=== PATIENT | female | born 1980 | race African-American/Black ===

== ENCOUNTER 2017-03-14 12:13 | Inpatient (IN) | payer SELFPAY ==
[~2017-03-14] VITALS: Ht 162.6 cm; Wt 79.4 kg
--- NOTE | 2017-03-14 12:20 | PHYS DOC ---
Adult General Chief Complaint Chief Complaint: ABDOMINAL PAIN HPI HPI Patient is a 36 year old -Martiniqu[place] female who presents with lower quadrant pain. She states his been going on for last week on and off intermittently. She states today she developed what right lower quadrant pain that is not constant and she vomited once. She denies any vaginal bleeding or discharge. She denies any past surgical history on her abdomen. She has had ablation of her cervix and hasn't had a period for the last several months. Review of Systems Review of Systems Constitutional: Denies fever or chills [] Eyes: Denies change in visual acuity, redness, or eye pain [] HENT: Denies nasal congestion or sore throat [] Respiratory: Denies cough or shortness of breath [] Cardiovascular: No additional information not addressed in HPI [] GI: Positive for abdominal pain, nausea, vomiting, denies any bloody stools or diarrhea [] : Denies dysuria or hematuria [] Musculoskeletal: Denies back pain or joint pain [] Integument: Denies rash or skin lesions [] Neurologic: Denies headache, focal weakness or sensory changes [] Endocrine: Denies polyuria or polydipsia [] Current Medications Current Medications Current Medications Medications (Trade) Dose Ordered Sig/Cassie Start Time Stop Time Status Last Admin Dose Admin Info (Do NOT chart on this entry -- for MONITORING) 1 each PRN DAILY PRN 03/14/17 13:30 03/16/17 13:29 Iohexol (Omnipaque 240 Mg/ml) 50 ml 1X ONCE 03/14/17 13:30 03/14/17 13:31 DC 03/14/17 14:10 50 ML Iohexol (Omnipaque 300 Mg/ml) 75 ml 1X ONCE 03/14/17 13:30 03/14/17 13:31 DC 03/14/17 14:10 75 ML Morphine Sulfate 2 mg PRN Q15MIN PRN 03/14/17 12:45 03/15/17 12:44 03/14/17 14:03 2 MG Ondansetron HCl (Zofran) 4 mg 1X ONCE 03/14/17 12:45 03/14/17 12:46 DC 03/14/17 12:59 4 MG Sodium Chloride 1,000 ml @ 1,000 mls/hr Q1H 03/14/17 12:40 03/14/17 13:39 DC 03/14/17 13:00 1,000 MLS/HR Allergies Allergies Allergies Coded Allergies Type Severity Reaction Last Updated Verified Penicillins Allergy Severe Anaphylaxis 03/14/17 Yes Physical Exam Physical Exam Constitutional: Well developed, well nourished, no acute distress, non-toxic appearance. [] HENT: Normocephalic, atraumatic, bilateral external ears normal, oropharynx moist, no oral exudates, nose normal. [] Eyes: PERRLA, EOMI, conjunctiva normal, no discharge. [] Neck: Normal range of motion, no tenderness, supple, no stridor. [] Cardiovascular:Heart rate regular rhythm, no murmur [] Lungs & Thorax: Bilateral breath sounds clear to auscultation [] Abdomen/pelvic: Bowel sounds normal, soft, mild tender palpation right lower quadrant, no rebound or guarding, no masses, no pulsatile masses. Pelvic exam shows normal external genitalia, mild tenderness on the right adnexal area, no discharge noted, nut culler present Skin: Warm, dry, no erythema, no rash. [] Back: No tenderness, no CVA tenderness. [] Extremities: No tenderness, no cyanosis, no clubbing, ROM intact, no edema. [] Neurologic: Alert and oriented X 3, normal motor function, normal sensory function, no focal deficits noted. [] Psychologic: Affect normal, judgement normal, mood normal. [] Current Patient Data Vital Signs Vital Signs Date Time Temp Pulse Resp B/P (MAP) Pulse Ox O2 Delivery O2 Flow Rate FiO2 03/14/17 14:46 84 20 117/72 (87) 95 Room Air 03/14/17 12:30 98.3 98.3 Lab Values Laboratory Tests Test 03/14/17 12:30 03/14/17 12:37 03/14/17 12:50 Urine Collection Type Unknown Urine Color Yellow Urine Clarity Clear Urine pH 7.5 Urine Specific Gruver >=1.030 Urine Protein Negative mg/dL (NEG-TRACE) Urine Glucose (UA) Negative mg/dL (NEG) Urine Ketones (Stick) Negative mg/dL (NEG) Urine Blood Negative (NEG) Urine Nitrite Negative (NEG) Urine Bilirubin Negative (NEG) Urine Urobilinogen Dipstick 1.0 mg/dL (0.2 mg/dL) Urine Leukocyte Esterase Small (NEG) Urine RBC 0 /HPF (0-2) Urine WBC 1-4 /HPF (0-4) Urine Squamous Epithelial Cells Many /LPF Urine Bacteria Moderate /HPF (0-FEW) Urine Mucus Marked /LPF POC Urine HCG, Qualitative Hcg negative (Negative) White Blood Count 10.1 x10^3/uL (4.0-11.0) Red Blood Count 4.52 x10^6/uL (3.50-5.40) Hemoglobin 12.4 g/dL (12.0-15.5) Hematocrit 37.7 % (36.0-47.0) Mean Corpuscular Volume 84 fL (79-100) Mean Corpuscular Hemoglobin 28 pg (25-35) Mean Corpuscular Hemoglobin Concent 33 g/dL (31-37) Red Cell Distribution Width 13.3 % (11.5-14.5) Platelet Count 240 x10^3/uL (140-400) Neutrophils (%) (Auto) 72 % (31-73) Lymphocytes (%) (Auto) 20 % (24-48) L Monocytes (%) (Auto) 7 % (0-9) Eosinophils (%) (Auto) 0 % (0-3) Basophils (%) (Auto) 0 % (0-3) Neutrophils # (Auto) 7.2 x10^3uL (1.8-7.7) Lymphocytes # (Auto) 2.0 x10^3/uL (1.0-4.8) Monocytes # (Auto) 0.7 x10^3/uL (0.0-1.1) Eosinophils # (Auto) 0.0 x10^3/uL (0.0-0.7) Basophils # (Auto) 0.0 x10^3/uL (0.0-0.2) Prothrombin Time 13.1 SEC (11.7-14.0) Prothrombin Time INR 1.1 (0.8-1.1) PTT 32 SEC (24-38) Sodium Level 143 mmol/L (136-145) Potassium Level 3.7 mmol/L (3.5-5.1) Chloride Level 105 mmol/L (98-107) Carbon Dioxide Level 31 mmol/L (21-32) Anion Gap 7 (6-14) Blood Urea Nitrogen 11 mg/dL (7-20) Creatinine 0.8 mg/dL (0.6-1.0) Estimated GFR (Cockcroft-Gault) 99.4 Glucose Level 89 mg/dL (70-99) Calcium Level 9.3 mg/dL (8.5-10.1) Total Bilirubin 0.8 mg/dL (0.2-1.0) Direct Bilirubin 0.1 mg/dL (0.0-0.2) Aspartate Amino Transferase (AST) 26 U/L (15-37) Alanine Aminotransferase (ALT) 26 U/L (14-59) Alkaline Phosphatase 77 U/L (46-116) Creatine Kinase 488 U/L (26-192) H Creatine Kinase MB (Mass) 1.1 ng/mL (0.0-3.6) Creatine Kinase MB Relative Index 0.2 % (0-4) Total Protein 7.5 g/dL (6.4-8.2) Albumin 3.8 g/dL (3.4-5.0) Lipase 145 U/L (73-393) Laboratory Tests 03/14/17 12:50 Laboratory Tests 03/14/17 12:50 Microbiology 03/14/17 Wet Prep - Final, Complete Microbiology 03/14/17 Wet Prep - Final, Complete EKG EKG [] Radiology/Procedures Radiology/Procedures [facility] [address], [place] [id number] IMAGING REPORT Signed PATIENT: WILMA JAMES ACCOUNT: [id number] : 1980 LOCATION: ER AGE: 36 SEX: F EXAM STATUS: REG ER ORD. PHYSICIAN: JAMES WHITE MD REASON: rlq pain PROCEDURE: CT ABD PELV W/ORAL&IV CONTRAST CT of the abdomen and pelvis with contrast, 2016: History: Right lower quadrant pain Multidetector CT imaging was performed following oral and IV administration of contrast. No hepatic abnormality is seen. The gallbladder is unremarkable. No pancreatic abnormality is detected. The spleen is of normal size. The kidneys show no evidence of obstruction or mass. The abdominal aorta is unremarkable. No abdominal or pelvic adenopathy is seen. There is a tiny central calcification in the uterus. There is mild diffuse bladder wall thickening. The appearance may be accentuated by lack of bladder distention. The bowel loops are not dilated. The oral contrast has not reached the distal small bowel or cecum. A small portion of the appendix is visualized and it is not enlarged. No pericecal inflammation is seen. No free air is identified in the abdomen. There is a small amount of free fluid in the pelvis. IMPRESSION: 1. Mild diffuse bladder wall thickening raising the possibility of cystitis. Clinical correlation is suggested. 2. Small amount of free fluid in the pelvis. 3. No evidence of acute appendicitis. PQRS Compliance Statement: One or more of the following individualized dose reduction techniques were utilized for this examination: 1. Automated exposure control 2. Adjustment of the mA and/or kV according to patient size 3. Use of iterative reconstruction technique DICTATED and SIGNED BY: DERICK MALONE MD DATE: 03/14/17 142 CC: JAMES WHITE MD; NON,STAFF ~ [facility] [address] [place], [place] [id number] IMAGING REPORT Signed PATIENT: WILMA JAMES ACCOUNT: [id number] : 1980 LOCATION: ER AGE: 36 SEX: F EXAM STATUS: REG ER ORD. PHYSICIAN: JAMES WHITE MD REASON: rlq pain PROCEDURE: PELVIS W/TV Pelvic ultrasound, 03/14/2017: History: Right lower quadrant pain Transabdominal and transvaginal scans were obtained. The uterus measures 8.6 x 6.6 x 5.3 cm. The central uterine echo complex measures 8 mm. There are are small echogenic foci related to the central uterine echo complex compatible with calcifications. A 2.8 cm mildly heterogeneous predominantly hyperechoic mass is seen within the myometrium anteriorly compatible with a uterine fibroid. A 1.7 cm nabothian cyst is present in the cervical region. The ovaries are of normal size. They contain small follicular cysts. No adnexal mass is seen. A small amount of free fluid is present in the pelvis. This amount of fluid can be on a physiologic basis. IMPRESSION: 1. Small uterine fibroid. 2. Nabothian cyst. 3. Minimal endometrial calcifications. 4. Small amount of free fluid in the pelvis. DICTATED and SIGNED BY: DERICK MALONE MD DATE: 03/14/17 141 CC: JAMES WHITE MD; NON,STAFF ~ RUN DATE: 03/14/17 PAGE 1 RUN TIME: 1346 [facility] [address] [place] [address] Tyrell Segundo M.D., Tying Machine Operator PATIENT: WILMA JAMES ACCT: [id number] LOC: DONTE U : [id number] AGE/SX: 36/F ROOM: REG : 03/14/[address]: JAMES WHITE MD : 1980 BED: DIS : STATUS: REG ER TLOC: SPEC #: [id number] ISAC: 03/14/17 STATUS: COMP REQ #: [id number] RECD: 03/14/17 [facility] [address]: JAMES WHITE MD SOURCE: VAGINAL ENTR: 03/14/17-1242 [facility] [address]: SPDESC: ORDERED: WET PREP COMMENTS: Has specimen been collected/obtained? Y Procedure Result WET PREP Final YEAST NONE SEEN TRICHOMONAS NONE SEEN CLUE CELLS CLUE CELLS PRESENT WBCS OCCASIONAL END OF REPORT Impressions: Right lower quadrant pain Bacterial vaginosis Course & Med Decision Making Course & Med Decision Making Pertinent Labs and Imaging studies reviewed. (See chart for details) Bilateral blood flow to ovaries noted on pelvic ultrasound per tech's note and confirmed by radiologist Dr. Derick Lombardo, who I personally spoke with and he confirmed. No other acute abnormalities noted in CT scan or pelvic ultrasound. Labs show bacterial vaginosis without any other abnormalities. She states her pain is still a 10 out of 10 now she is received IV morphine. We'll admit for undifferentiated abdominal pain. Patient's agreeable plans in stable condition this time. I spoke with the hospitalist who once oxycodone by mouth ordered and will start her on Flagyl 500 mg twice a day for bacterial vaginosis. Dragon Disclaimer Dragon Disclaimer This electronic medical record was generated, in whole or in part, using a voice recognition dictation system. Departure Departure Impression: Primary Impression: Abdominal pain Disposition: ADMITTED INPATIENT Admitting Physician: Other Condition: STABLE Problem Qualifiers Primary Impression: Abdominal pain Abdominal location: right lower quadrant Qualified Codes: R10.31 - Right lower quadrant pain JAMES WHITE MD Mar 14, 2017 12:20
[2017-03-14] MEDS ORDERED: IV NORMAL SALINE 1000ML BAG 1,000 ML IV SCH (12:40)
[2017-03-14] MEDS ORDERED: ONDANSETRON PF 4 MG/2 ML VIAL. IV ONE (12:45)
[2017-03-14] MEDS: MORPHINE SULFATE 2 MG/ML DISP.SYRIN. IV/SQ PRN ×2 (12:59→14:03)
[2017-03-14 13:06] LABS: BASO % 0 % (0-3); EOS % 0 % (0-3); HEMATOCRIT 37.7 % (36.0-47.0); HEMOGLOBIN 12.4 g/dL (12.0-15.5); LYMPH % 20 % (24-48); MEAN CORPUSCULAR HEMOGLOBIN 28 pg (25-35); MEAN CORPUSCULAR HGB CONC 33 g/dL (31-37); MEAN CORPUSCULAR VOLUME 84 fL (79-100); MONO % 7 % (0-9); NEUT % 72 % (31-73); PLATELET COUNT 240 x10^3/uL (140-400); RED BLOOD COUNT 4.52 x10^6/uL (3.50-5.40); RED CELL DISTRIBUTION WIDTH 13.3 % (11.5-14.5); WHITE BLOOD COUNT 10.1 x10^3/uL (4.0-11.0)
[2017-03-14 13:16] LABS: CALCIUM 9.3 mg/dL (8.5-10.1); CREATININE 0.8 mg/dL (0.6-1.0); GFR 99.4; POTASSIUM 3.7 mmol/L (3.5-5.1)
[2017-03-14 13:24] LABS: ALBUMIN 3.8 g/dL (3.4-5.0); DIRECT BILIRUBIN 0.1 mg/dL (0.0-0.2); TOTAL BILIRUBIN 0.8 mg/dL (0.2-1.0); TOTAL PROTEIN 7.5 g/dL (6.4-8.2)
[2017-03-14] MEDS ORDERED: CONTRAST GIVEN MC PRN (13:30)
[2017-03-14] MEDS ORDERED: IOHEXOL 240 MG/ML 50ML VIAL. PO ONE (13:30)
[2017-03-14] MEDS ORDERED: IOHEXOL 300 MG/ML 75 ML VIAL IV ONE (13:30)
[2017-03-14 13:31] LABS: CKMB MASS 1.1 ng/mL (0.0-3.6); INR 1.1 (0.8-1.1); PROTHROMBIN TIME PATIENT 13.1 SEC (11.7-14.0)
[2017-03-14 13:36] LABS: BILIRUBIN,URINE NEGATIVE (NEG); GLUCOSE,URINE NEGATIVE (NEG); NITRITE,URINE NEGATIVE (NEG); PH,URINE 7.5; PROTEIN,URINE NEGATIVE (NEG-TRACE)
[2017-03-14 13:53] LABS: RBC,URINE 0 /HPF (0-2)
[2017-03-14 13:54] LABS: BACTERIA,URINE MODERATE /HPF (0-FEW); SQUAMOUS EPITHELIAL CELL,UR MANY /LPF
--- NOTE | 2017-03-14 14:32 | RAD ---
CT of the abdomen and pelvis with contrast, 2016: History: Right lower quadrant pain Multidetector CT imaging was performed following oral and IV administration of contrast. No hepatic abnormality is seen. The gallbladder is unremarkable. No pancreatic abnormality is detected. The spleen is of normal size. The kidneys show no evidence of obstruction or mass. The abdominal aorta is unremarkable. No abdominal or pelvic adenopathy is seen. There is a tiny central calcification in the uterus. There is mild diffuse bladder wall thickening. The appearance may be accentuated by lack of bladder distention. The bowel loops are not dilated. The oral contrast has not reached the distal small bowel or cecum. A small portion of the appendix is visualized and it is not enlarged. No pericecal inflammation is seen. No free air is identified in the abdomen. There is a small amount of free fluid in the pelvis. IMPRESSION: 1. Mild diffuse bladder wall thickening raising the possibility of cystitis. Clinical correlation is suggested. 2. Small amount of free fluid in the pelvis. 3. No evidence of acute appendicitis. PQRS Compliance Statement: One or more of the following individualized dose reduction techniques were utilized for this examination: 1. Automated exposure control 2. Adjustment of the mA and/or kV according to patient size 3. Use of iterative reconstruction technique
--- NOTE | 2017-03-14 14:36 | RAD ---
Pelvic ultrasound, 03/14/2017: History: Right lower quadrant pain Transabdominal and transvaginal scans were obtained. The uterus measures 8.6 x 6.6 x 5.3 cm. The central uterine echo complex measures 8 mm. There are are small echogenic foci related to the central uterine echo complex compatible with calcifications. A 2.8 cm mildly heterogeneous predominantly hyperechoic mass is seen within the myometrium anteriorly compatible with a uterine fibroid. A 1.7 cm nabothian cyst is present in the cervical region. The ovaries are of normal size. They contain small follicular cysts. No adnexal mass is seen. A small amount of free fluid is present in the pelvis. This amount of fluid can be on a physiologic basis. IMPRESSION: 1. Small uterine fibroid. 2. Nabothian cyst. 3. Minimal endometrial calcifications. 4. Small amount of free fluid in the pelvis.
[2017-03-14] MEDS ORDERED: ONDANSETRON PF 4 MG/2 ML VIAL. IV PRN (15:00)
[2017-03-14 15:30] VITALS: BP 123/84
[2017-03-14] MEDS ORDERED: oxyCODONE IR 5 MG TABLET PO PRN (15:30)
[2017-03-14] MEDS: fentaNYL PF VIAL 100 MCG/2 ML VIAL IV PRN ×2 (15:45→18:09)
[2017-03-14] MEDS: metroNIDAZOLE 500 MG TABLET PO SCH ×2 (16:42→20:22)
[2017-03-14 19:00] VITALS: BP 114/77
[2017-03-14] MEDS: IBUPROFEN 400 MG TABLET. PO PRN (22:39)
[2017-03-14 23:00] VITALS: BP 106/79
--- NOTE | 2017-03-14 23:11 | HP ---
ADMIT DATE: 03/14/2017 CHIEF COMPLAINT: Right lower quadrant pain. HISTORY OF PRESENT ILLNESS: The patient is a 36-year-old healthy -[place] woman who presented to the Emergency Room with severe abdominal pain in the right lower quadrant. She relates that she has had mild pain in the area, off and on over the past week. However, today it suddenly hit her very hard. She describes it as stabbing pain, over and over in her right lower quadrant. Pain actually made her nauseous and she vomited once. She was actually unable to eat at that time. She denies any vaginal bleeding or discharge. Denies any fevers, chills. No surgical history. She actually has not had a period for about a year after having a cervical ablation. In the Emergency Room, a CT of the abdomen was obtained, showing no evidence of acute appendicitis. There was a small amount of free fluid noted in the pelvis and mild diffuse bladder wall thickening, raising the possibility of cystitis. Urine however, did not reveal any signs of infection. The patient is now admitted for pain control. PAST MEDICAL HISTORY: None. FAMILY HISTORY: Positive for hypothyroidism in mother. SOCIAL HISTORY: Lives in [place]. No toxic habits. ALLERGIES: PENICILLINS CAUSING HIVES AND ANAPHYLAXIS. MEDICATIONS: MAR reconciled with home medications. REVIEW OF SYSTEMS: Positive as per HPI. Her abdominal pain is actually much improved. She feels a little woozy, probably from the pain medication, but otherwise has currently no complaints in rest of organ system review. PHYSICAL EXAMINATION: VITAL SIGNS: From today show a blood pressure of 114/77, heart rate of 75, respiratory rate at 17. She is afebrile. GENERAL: This is a well-nourished 36-year-old -[place] woman, alert and oriented, no acute distress, very pleasant. HEENT: Shows no scleral icterus. NECK: Supple, without any lymphadenopathy. LUNGS: Clear to auscultation bilaterally. HEART: Regular rate and rhythm. ABDOMEN: Has positive bowel sounds, soft, nontender throughout. EXTREMITIES: Show no edema. SKIN: Warm, soft and dry, without any rash. LABORATORY DATA: CBC with a WBC of 10.0, hemoglobin 12.4, platelets of 240. Chemistries with a BUN and creatinine of 11 and 0.8, normal electrolytes, normal LFTs. CK at 488, and with negative MB. Albumin at 3.8. Urine with 1-4 wbc's. Urine has specific gravity greater than 1.030. HCG is negative. IMAGING STUDIES: CT of the abdomen as above. Pelvic ultrasound shows small uterine fibroid, nabothian cyst, minimal endometrial calcifications and small amount of free fluid in the pelvis. ASSESSMENT AND PLAN: Ms. Tinsley is a 36-year-old -[place] woman with severe right lower quadrant pain. No signs of appendicitis. Nausea, most likely related to severe pain. Etiology is somewhat unclear. Consider ovarian origin such as a ruptured cyst versus mild torsion, although no evidence on CT or ultrasound of persistent problem. Symptomatically, she is much improved. We will treat her as needed with pain medications. Consider DATA WAREHOUSE CONSULTANT consult if recurrent symptoms in the morning. SHENG BARKER MD DR: UR/nts JOB#: [id number] / [id number]
[2017-03-15 03:00] VITALS: BP 103/76
[2017-03-15 03:48] LABS: BASO # 0.1 x10^3/uL (0.0-0.2); BASO % 1 % (0-3); EOS % 1 % (0-3); HEMATOCRIT 37.7 % (36.0-47.0); HEMOGLOBIN 12.2 g/dL (12.0-15.5); LYMPH # 2.8 x10^3/uL (1.0-4.8); LYMPH % 29 % (24-48); MEAN CORPUSCULAR HEMOGLOBIN 27 pg (25-35); MEAN CORPUSCULAR HGB CONC 32 g/dL (31-37); MEAN CORPUSCULAR VOLUME 84 fL (79-100); MONO % 7 % (0-9); NEUT % 63 % (31-73); PLATELET COUNT 221 x10^3/uL (140-400); RED BLOOD COUNT 4.49 x10^6/uL (3.50-5.40); RED CELL DISTRIBUTION WIDTH 13.5 % (11.5-14.5); WHITE BLOOD COUNT 9.4 x10^3/uL (4.0-11.0)
[2017-03-15 04:04] LABS: CALCIUM 8.5 mg/dL (8.5-10.1); CREATININE 0.8 mg/dL (0.6-1.0); GFR 99.4; POTASSIUM 3.5 mmol/L (3.5-5.1)
[2017-03-15 07:00] VITALS: BP 118/84
[2017-03-15 11:00] VITALS: BP 111/76
[2017-03-15] MEDS ORDERED: IBUP-1027 PO (13:08)
[2017-03-15] MEDS: IBUPROFEN 400 MG TABLET. PO PRN (13:29)
== END 2017-03-15 14:00 | disposition home or self-care (01) | DRG 761 ==
LOC: ER 12:13 → 5 SOUTH 14:50
PROVIDERS: ADMIT Internal Medicine Hematology & Oncology; ATTEND Internal Medicine Hematology & Oncology
DX: N83.201 Unspecified ovarian cyst, right side (principal); Z88.0 Allergy status to penicillin; Z83.49 Family history of other endocrine, nutritional and metabolic diseases
CPT/HCPCS: 36415; 74177; 76830; 76856; 80048; 80076; 81001; 81025; 82553; 83690; 85025; 85610; 85730; 87086; 87491; 87591; 96361; 96374; 96375; 96376; J2270; J2405; J3010; J7030; Q0111; Q9966; Q9967; 99285-25